=== PATIENT | female | born 1990 | race Caucasian/White ===

== ENCOUNTER → 2017-07-29 20:37 | Observation (INO) ==
[2017-07-29 19:41] LABS: Bilirubin,Urine Small (Negative); Blood,Urine Negative (Negative); Clarity,Urine Cloudy (Clear); Color,Urine Dark Yellow (Yellow); Glucose,Urine (UA) Normal (Normal); Ketones,Urine >=160 mg/dL (Negative); Leukocyte Esterase,Urine Negative (Negative); Nitrite,Urine Negative (Negative); Protein,Urine 30 mg/dL (Neg-Trace); Specific Gravity,Urine > 1.030 (1.010-1.025); Urobilinogen,Urine Normal (Normal)
[2017-07-29 19:44] LABS: Amphetamine Screen,Urine Negative ng/mL (Cutoff=1000); Barbiturate Screen,Urine Negative ng/mL (Cutoff=200); Benzodiazepines Screen,Urine Negative ng/mL (Cutoff=200); Cannabinoid Screen,Urine Negative ng/mL (Cutoff = 50); Cocaine Screen,Urine Negative ng/mL (Cutoff= 300); Opiate Screen,Urine Negative ng/mL (Cutoff=300); Phencyclidine Screen,Urine Negative ng/mL (Cutoff=25)
[2017-07-29 19:45] LABS: Hyaline Casts,Urine None Seen per lpf (None-Few); RBC,Urine 0-3 per hpf (0-3); Squamous Epithelial Cell,Urine Many per lpf (None-Few)
[2017-07-29 20:01] LABS: Bacteria,Urine Few per hpf (None-Few)
--- NOTE | 2017-07-29 20:04 | OB/GYN Progress Note ---
Date of Encounter: 07/29/17 Time of Encounter: 20:01 - Assessment and Plan (1) Nausea and vomiting during Current Visit: Yes Status: Acute - Will obtain labs - heart monitor - Encouraged oral hydration - encouraged patient to come back if N/V is intractable or fever, syncope, dizziness Subjective - Subjective Principal diagnosis: nausea and vomitting Interval history: Coni is a 26-year-old female 34 weeks presented to labor and deliver with 1 day of nausea and vomiting. Patient states that she vomited about 7 times this morning between 7:30 and 2:30 PM. Patient states that she currently is not nauseous but it comes in phases. Patient has not vomited since 2:30 today and has been able to drink water without N/V. Patient believes this may possibly be due to food poisoning as she ate a Lunchable that she kept in a car last night ( about 40 degrees last night). Patient uses Subutex prescribed by Dr. Alvarado at [facility]. Patient states she has not skipped any doses. Patient admits to 2 episodes of diarrhea this morning Patient denies dizziness, fever, chills, weakness, coughing, vision changes, syncope. Antepartum ROS: movement normal, no loss of fluid, no vaginal bleeding, no contractions Objective - Vital Signs Vital Signs: BP: 107/68, HR: 105, Temp: 98.2F Intake and Output 07/29/17 07/29/17 07/29/17 07:59 15:59 23:59 Other: Weight 57.3 kg Patient Weight 07/29/17 23:59 Weight 57.3 kg - Exam FHR: category 1 Auscultation: bilateral: normal Abdomen: Present: normal appearance, soft. Absent: tenderness Uterus: Present: normal Comments: mouth: moist mucous membranes - Labs Labs: Abnormal lab results Urine Clarity Cloudy (Clear) A 07/29/17 19:00 Ur Specific [place] > 1.030 (1.010-1.025) H 07/29/17 19:00 Urine Protein 30 mg/dL (Neg-Trace) H 07/29/17 19:00 Urine Ketones >=160 mg/dL (Negative) H 07/29/17 19:00 Urine Bilirubin Small (Negative) H 07/29/17 19:00 Urine Microscopic WBC 3-5 per hpf (0-3) H 07/29/17 19:00 Ur Squamous Epith Cells Many per lpf (None-Few) H 07/29/17 19:00
[2017-07-30 11:46] LABS: HIV-1&2 Antibody & p24 Ag Nonreactive (Nonreactive); Hepatitis B Surface Antigen Nonreactive (Nonreactive)
[2017-07-30 12:06] LABS: Rubella IgG Antibody POSITIVE (POSITIVE); Varicella Zoster IgG Antibody Positive
== END | disposition home or self-care (01) ==
LOC: 1NENULAB
PROVIDERS: ADMIT Obstetrics & Gynecology; ATTEND Obstetrics & Gynecology

== ENCOUNTER 2017-08-22 18:57 | Observation (INO) ==
[2017-08-22 20:01] LABS: Bilirubin,Urine Negative (Negative); Blood,Urine Negative (Negative); Clarity,Urine Clear (Clear); Color,Urine Yellow (Yellow); Glucose,Urine (UA) Normal (Normal); Ketones,Urine Negative (Negative); Leukocyte Esterase,Urine Negative (Negative); Nitrite,Urine Negative (Negative); Protein,Urine Negative (Neg-Trace); Specific Gravity,Urine 1.014 (1.010-1.025); Urobilinogen,Urine Normal (Normal)
[2017-08-22 20:06] LABS: Amphetamine Screen,Urine Negative ng/mL (Cutoff=1000); Barbiturate Screen,Urine Negative ng/mL (Cutoff=200); Benzodiazepines Screen,Urine Negative ng/mL (Cutoff=200); Cannabinoid Screen,Urine Negative ng/mL (Cutoff = 50); Cocaine Screen,Urine Negative ng/mL (Cutoff= 300); Opiate Screen,Urine Negative ng/mL (Cutoff=300); Phencyclidine Screen,Urine Negative ng/mL (Cutoff=25)
--- NOTE | 2017-08-22 20:09 | OB/GYN Progress Note ---
Date of Encounter: 08/22/17 Time of Encounter: 20:06 - Assessment and Plan (1) 37 weeks gestation of Current Visit: Yes Status: Acute (2) Decreased movement Current Visit: Yes Status: Acute Pt states movement has improved since arriving. tracing reactive, Seen by Dr Rogers, will discharge home with labor and when to return to triage precautions. Qualifiers: Fetus number: single or unspecified fetus Trimester: third trimester Qualified Code(s): O36.8130 - Decreased movements, third trimester, not applicable or unspecified (3) NST (non-stress test) reactive Current Visit: No Status: Acute Baseline 125 Subjective - Subjective Interval history: 37+4 here with decreased movement this evening. Pt states had intercourse early and has felt cramping since but nothing regular or painful. Denies vaginal bleeding or leaking of fluid. Antepartum ROS: contractions, no loss of fluid, no vaginal bleeding, no movement normal Objective - Vital Signs Vital Signs: Intake and Output 08/22/17 08/22/17 08/22/17 07:59 15:59 23:59 Other: Weight 60.328 kg Patient Weight 08/22/17 23:59 Weight 60.328 kg - Exam FHR: category 1 FHR comments: Baseline 125 Abdomen: Present: soft, gravid Uterus: Present: normal Cervical dilation: 2
== END 2017-08-22 20:16 | disposition home or self-care (01) ==
LOC: 1NENULAB
PROVIDERS: ADMIT Obstetrics & Gynecology; ATTEND Obstetrics & Gynecology

== ENCOUNTER 2017-09-04 10:00 | Inpatient (IN) ==
[2017-09-04] MEDS ORDERED: Ondansetron 4 MG/2 ML VIAL IVP PRN (10:40)
[2017-09-04] MEDS ORDERED: Famotidine 20 MG/2 ML VIAL IVP PRN (10:40)
[2017-09-04] MEDS ORDERED: Metoclopramide 10 MG/2 ML VIAL IVP PRN (10:40)
[2017-09-04] MEDS ORDERED: Naloxone 0.4 MG/ML INJ IVP PRN (10:40)
[2017-09-04] MEDS ORDERED: D5% in Lactated Ringers 1,000 ML IVC SCH (10:45)
[2017-09-04] MEDS ORDERED: miSOPROStol 25 MCG TABLET PO PRN (10:47)
[2017-09-04] MEDS ORDERED: Penicillin G Potassium 5,000,000 UNIT in 0.9 % Sodium Chloride Mini Bag 100 ML IVPB ONE (10:48)
--- NOTE | 2017-09-04 10:55 | OB/GYN History & Physical ---
Date of Encounter: 09/04/17 Time of Encounter: 10:43 Assessment and Plan (1) 39 weeks gestation of Current visit: Yes Status: Acute Admit for IOL. Plan for cytotec 25mcg PO per Dr. Rogers's order. PCN for GBS ppx. Epidural when requested. Anticipate . (2) complicated by subutex maintenance, antepartum Current visit: Yes Status: Acute Patient taking daily Subutex. Urine drug screen will be completed. Patient to bring Subutex from home. (3) GBS (group B Streptococcus carrier), +RV culture, currently Current visit: Yes Status: Chronic Patient GBS positive. We will provide with penicillin throughout labor. (4) HCV antibody positive Current visit: Yes Status: Chronic Chronic condition. (5) Noncompliance Current visit: Yes Status: Acute History of Present Illness HPI: Ms. Martinez is a 26 year old female presenting to labor and delivery for induction. Patient was seen in the office yesterday and was 5 cm dilated. Patient has a history of one spontaneous . Patient's has been complicated by opioid dependence. Patient is currently taking Subutex and vitamins. Patient has had positive hepatitis C antibody test. IBIS grade 3 on pap in June. Pt had a colposcopy without biopsy at that time. Plan to repeat pap and colposcopy . also complicated by tobacco abuse of approximately one half pack of cigarettes per day. Patient has also had intrauterine growth restriction. Patient denies any vaginal bleeding, cramping or loss of fluid. She reports good movement. Patient is GBS positive. Rubella immune. Hep C positive. Other serologies negative. Blood type A+. Patient was poor to follow-up as outpatient and has only had 5 visits. Past Med Surg Social Fam HX - Past Medical History Medical history: no medical history Psychiatric history: anxiety, depression - Past Surgical History Surgical History: no surgical history - Social History Smoking Status: Current every day smoker Packs per day: 0.5 Smokeless Tobacco Status: No Alcohol use: none Drug use: none - Family History Mother Adopted: No Family Member Ethnicity: Non- Living Status: Still Living Hx Family Cardiac Disorders: No Hx Family Respiratory Disorders: No Hx Family Cancer: No Hx Family GI Disorders: No Hx Family Genitourinary Disorders: No Hx Family Endocrine Disorder: No Hx Family Musculoskeletal Disorders: No Hx Family Neuromuscular Disorders: No Hx Family Neurologic Disorders: No Hx Family HEENT Disorders: No Hx Family Autoimmune Disorders: No Hx Family Reproductive Disorders: No Hx Family Psychosocial Disorders: No Hx Family Medical Disorders: No Obstetrical History - Pregnancies : 5 Para: 3 Term: 3 : 0 Ab's: 1 Livin Medications and Allergies Subutex 14 mg SL DAILY 06/25/16 [History] Vit/FA 1 each PO DAILY tablet 07/15/16 [Rx] 3 Allergy/AdvReac Type Severity Reaction Status Date / Time diphenhydramine Allergy Chest Pain Verified 07/29/17 19:00 [From Benadryl] Review of System OB All systems PM: reviewed and no additional remarkable complaints except as stated Exam - Constitutional Constitutional: well developed, well nourished, no acute distress, average body habitus - HEENT HEENT: Normocephaly, Mucus Membranes Moist - Neck Neck exam: normal inspection - Lungs Respiratory exam: CTAB - Cardiovascular Cardiovascular exam: RRR - Abdomen Abdomen: Present: bowel sounds normal, gravid, non tender - Extremities Extremities exam: normal inspection, warm - Cervix Dilation: 5 (in office yesterday) - Uterus Uterus exam: Present: enlarged (gravid), normal contour - Anus/Rectum Anus/Rectum: Present: normal perianal skin Results Result Diagrams: 09/04/17 10:40 All other labs normal. - VTE Reasons for not Prescribing Prophylaxis: Treatment not Indicated - Low risk for VTE
[2017-09-04 10:56] LABS: Basophils % 0.3 %; Eosinophils # 0.2 K/mcL (0.0-0.6); Eosinophils % 1.7 %; Hematocrit 33.8 % (35.3-44.9); Hemoglobin 10.7 g/dL (11.5-15.4); Immature Granulocytes % 0.8 % (0-4); Lymphocytes % 21.8 %; Mean Corpuscular HGB Conc 31.7 g/dL (31.6-35.5); Mean Corpuscular Volume 85.1 fL (83.0-100.0); Mean Platelet Volume 10.9 fL (9.4-12.4); Monocytes # 0.9 K/mcL (0.0-1.3); Monocytes % 10.2 %; Platelet Count 214 K/mcL (140-400); Red Blood Count 3.97 M/mcL (3.82-4.97); Red Cell Distribution Width 13.2 % (11.5-14.5); Segmented Neutrophils % 65.2 %
[2017-09-04 11:02] LABS: Amphetamine Screen,Urine Negative ng/mL (Cutoff=1000); Barbiturate Screen,Urine Negative ng/mL (Cutoff=200); Benzodiazepines Screen,Urine Negative ng/mL (Cutoff=200); Cannabinoid Screen,Urine Negative ng/mL (Cutoff = 50); Cocaine Screen,Urine Negative ng/mL (Cutoff= 300); Opiate Screen,Urine Negative ng/mL (Cutoff=300); Phencyclidine Screen,Urine Negative ng/mL (Cutoff=25)
--- NOTE | 2017-09-04 14:34 | Anesthesia Evaluation PreOp ---
Date of Encounter: 09/04/17 Time of Encounter: 14:24 - Past History Planned Operation: labor epidural Cardiac History: Denies any Significant Hx Pulmonary History: Smoker (1/2 ppd) MATHEMATICS EDUCATION PROFESSOR History: Denies Any Significant HX Other Medical History: Other (former opioid abuse, has been on subutex this whole , suboxone prior to that.) Anesthesia History: No Prior Anesthetic Complications (has had 3 prior epidurals without problems. Never had GA, denies FHAP.) : Yes Alcohol Use: none Drug use: none Medications and Allergies Subutex 14 mg SL DAILY 06/25/16 [History] Vit/FA 1 each PO DAILY tablet 07/15/16 [Rx] 3 Allergy/AdvReac Type Severity Reaction Status Date / Time diphenhydramine Allergy Chest Pain Verified 07/29/17 19:00 [From Benadryl] - Meds/Allergy Pre-op Review Medications Reviewed: Yes Allergies Reviewed: Yes Beta Blockers on Current Med List: No Anesthesia Results - Labs 09/04/17 10:40 Anesthesia Exam 121/69, 74, 16. FHTs 129. Height: 5'1" Weight: 60 kg NPO (# of Hours): >8 Pain Scale: 0 Pain Scale Used: Numeric (1 - 10) - HEENT Pupil (Motor): Pupils equal, EOMI Mallampati: II Teeth: Poor dentition - MATHEMATICS EDUCATION PROFESSOR LOC: Oriented MATHEMATICS EDUCATION PROFESSOR Motor: Normal RUE, Normal LUE, Normal RLE, Normal LLE, Normal Face MATHEMATICS EDUCATION PROFESSOR Sensory: Normal: RUE, LUE, RLE, LLE, Face - Cardiac Rhythm: Regular - Pulmonary Breath Sounds: bilateral Clear Respiratory Effort: Symmetrical Anesthesia Assess/Plan ASA Score: 2 Modified Isidoro Scale for Level of Consciousness: Cooperative, oriented, and tranquil Anesthetic Plan: Regional Autologous Blood: No Monitoring Plan: Standard Monitors
[2017-09-04] MEDS ORDERED: *HR* FentaNYL (PF) 100 MCG/2 ML VIAL EP ONE (14:36)
[2017-09-04] MEDS ORDERED: Bupivacaine-MPF 0.25% 10 ML VIAL EP ONE (14:36)
[2017-09-04] MEDS ORDERED: Epidural Premix (fent/bupiv) 110 ML EP SCH (14:45)
[2017-09-04] MEDS ORDERED: Penicillin G Potassium 2,500,000 UNIT in D5% in Water 100 ML IVPB SCH (15:20)
--- NOTE | 2017-09-04 15:57 | OB Labor Progress Note ---
Date of Encounter: 09/04/17 Time of Encounter: 15:55 Labor Progress Note - Subjective Subjective: The patient reports that she appreciates contractions but is not uncomfortable with them - Vital Signs Vital Signs: Afebrile, vital signs stable - Cervix Cervix: 5-6/90/0, vertex - Heart Tones Heart Tones: 120s, CAT 1 - [place] Kings[place]: Contractions irregular on external toco. Patient has had one dose of oral Cytotec - Interventions Interventions: 39 week IUP with multiple high risk factors for induction of labor. - Plan Plan: Amniotomy, meconium-stained amniotic fluid seen. IUPC placed. Continue close observation and augment as needed. Patient has been preoped for an epidural
[2017-09-04] MEDS ORDERED: Penicillin G Potassium 2,500,000 UNIT in 0.9 % Sodium Chloride 100 ML IVPB SCH (16:00)
[2017-09-04] MEDS ORDERED: Oxytocin 20 units/ LR 1000 mL 20 UNIT/1,000 ML BAG IVC SCH ×2 (16:30→20:25)
[2017-09-04] MEDS ORDERED: Epidural Premix (fent/bupiv) 110 ML EP ONE (17:18)
[2017-09-04] MEDS ORDERED: *HR* FentaNYL (PF) 100 MCG/2 ML VIAL ONE (17:18)
[2017-09-04] MEDS ORDERED: Bupivacaine-MPF 0.25% 10 ML VIAL ONE (17:18)
--- NOTE | 2017-09-04 18:32 | Anesthesia Procedures ---
Date of Encounter: 09/04/17 Time of Encounter: 17:20 Procedures: Anesthesia - Epidural/Spinal Patient ID/Chart reviewed: Yes Patient examined: Yes OB Eval: Gestational age: 39 OB Eval: : 5 OB Eval: Hx Para: 3 OB Eval: Dilated at (cm): 7 OB Eval: Contractions: Non-stressed pattern Consent Obtained: Yes Supplemental Oxygen: None/Room Air Site Prep: Aseptic Technique, Sterile prep and drape, Povidone-Iodine 1% Patient position: upright Local Anesthetic: Lidocaine 1% Amount of Local Anesthetic used: 5 Touhy Needle Gauge: 18 Touhy Needle Depth (cm): 6 Catheter Depth at Skin (cm): 18 Test Dose (1.5% Lido + Epi): Volume given (mls): 3 Test Dose Result: Negative Loading Dose: 0.25% Marcaine (mls): 8 Loading Dose: Fentanyl (mcg): 100 Loading Dose Administered: Thru Catheter Infusion Med: 0.125% Bupivacaine w/ 2 mcg/ml Fentanyl Infusion Rate (mls/hr): [address]: Tegaderm, Tape Interspace Used: L3-L4 Loss of Resistance (KIKI): Yes Blood: No CSF: No Paresthesia: No Vitals + FHT's: 3 Vital Signs Time 1720 1745 1750 1755 1800 BP 128/77 146/83 145/86 138/74 125/83 Pulse 95 120 111 96 101 FHTs 120 120 120 120 120
--- NOTE | 2017-09-04 19:34 | OB/GYN Procedure Note ---
Delivery - Delivery Date: 09/04/17 Provider: Altagracia Rogers Intrapartum events: meconium Delivery induction: misoprostol Delivery augmentation: rupture of membranes, pitocin Delivery monitor: external FHT, external uterine, internal uterine Anesthesia: epidural Estimated Blood Loss: 100 - (s) A Delivery Date: 09/04/17 Delivery Time: 18:59 Presentation: vertex Position: OA Route of delivery: Gender: Female Viability: Viable Pounds: 6 Ounces: 6 Weight Gram: 2.9 kg at 1 minute: 8 at 5 mins: 9 Shoulder Dystocia: not encountered Placenta: spontaneous Cord: nuchal cord, 3 umbilical vessels, nuchal reduced - Repair Episiotomy: none Laceration Description: Periurethral, Superficial - Complications Delivery complications: meconium Delivery comments: The patient was complete and pushing with epidural anesthesia with a spontaneous vaginal delivery in the KENDRA position of a vigorous female weighing 6 lbs. 6 and 910 Apgars oz. with Apgars of 8 at 1 minute and 9 at 5 minutes. Nuchal cord 1 was reduced. Infant was placed on the maternal abdomen. The cord was clamped and cut after pulsations ceased. Cord segment obtained. The placenta was delivered spontaneous and intact. Superficial periurethral lacerations were hemostatic and not repaired. There is a superficial perineal laceration was hemostatic and not repaired. Estimated blood loss 100 mL, complications none - Disposition Mom disposition: stable in LDR Mccarley disposition: stable in LDR
[2017-09-04] MEDS ORDERED: Acetaminophen 325 MG TABLET PO PRN (20:25)
[2017-09-05 04:47] LABS: Basophils % 0.2 %; Eosinophils # 0.1 K/mcL (0.0-0.6); Eosinophils % 1.1 %; Immature Granulocytes % 0.5 % (0-4); Lymphocytes # 2.3 K/mcL (0.6-4.6); Lymphocytes % 21.3 %; Mean Corpuscular HGB Conc 32.1 g/dL (31.6-35.5); Mean Corpuscular Volume 84.1 fL (83.0-100.0); Mean Platelet Volume 10.9 fL (9.4-12.4); Monocytes # 1.2 K/mcL (0.0-1.3); Monocytes % 11.5 %; Neutrophils # 6.9 K/mcL (1.6-8.9); Nucleated Red Blood Cells 0.3 /100 WBC (0); Platelet Count 157 K/mcL (140-400); Red Blood Count 3.33 M/mcL (3.82-4.97); Red Cell Distribution Width 13.3 % (11.5-14.5); Segmented Neutrophils % 65.4 %
[2017-09-05 08:31] VITALS: BP 134/81
[2017-09-05] MEDS ORDERED: Prenatal Vit/FA 1 EACH TABLET PO SCH (09:00)
--- NOTE | 2017-09-05 11:22 | Discharge Summary ---
Date of Encounter: 09/05/17 Time of Encounter: 11:19 - Discharge Diagnosis (1) Status post delivery at term Priority: Primary Status: Resolved Comments: Continue routine care discharge home today follow up with Dr. Rogers in 4-6 weeks Depo Provera prior to discharge - Discharge Medications Home Medications: Subutex 14 mg SL DAILY 06/25/16 [History] Vit/FA 1 each PO DAILY tablet 07/15/16 [Rx] Ferrous Sulfate 325 mg PO DAILY tablet 09/05/17 [Rx] Allergies/Adverse Reactions: 3 Allergy/AdvReac Type Severity Reaction Status Date / Time diphenhydramine Allergy Chest Pain Verified 07/29/17 19:00 [From Benadi] Data Procedures and tests throughout hospitalization: Laboratory Tests 09/04/17 09/04/17 09/05/17 10:40 10:40 04:27 WBC 9.2 10.6 RBC 3.97 3.33 L Hgb 10.7 L 9.0 L D Hct 33.8 L 28.0 L MCV 85.1 84.1 MCH 27.0 L 27.0 L MCHC 31.7 32.1 RDW 13.2 13.3 Plt Count 214 157 MPV 10.9 10.9 Immature Gran % 0.8 0.5 Seg Neutrophils % 65.2 65.4 Lymphocytes % 21.8 21.3 Monocytes % 10.2 11.5 Eosinophils % 1.7 1.1 Basophils % 0.3 0.2 Neutrophils # 6.0 6.9 Lymphocytes # 2.0 2.3 Monocytes # 0.9 1.2 Eosinophils # 0.2 0.1 Basophils # 0.0 0.0 Nucleated RBCs/100 WBC 0.3 H Urine Opiates Screen Negative Ur Barbiturates Screen Negative Ur Phencyclidine Scrn Negative Ur Amphetamines Screen Negative U Benzodiazepines Scrn Negative Urine Cocaine Screen Negative U Marijuana (THC) Screen Negative Labs on day of discharge: Labs from last 24 hours 09/05/17 04:27 WBC 10.6 RBC 3.33 L Hgb 9.0 L D Hct 28.0 L MCV 84.1 MCH 27.0 L MCHC 32.1 RDW 13.3 Plt Count 157 MPV 10.9 Immature Gran % 0.5 Seg Neutrophils % 65.4 Lymphocytes % 21.3 Monocytes % 11.5 Eosinophils % 1.1 Basophils % 0.2 Neutrophils # 6.9 Lymphocytes # 2.3 Monocytes # 1.2 Eosinophils # 0.1 Basophils # 0.0 Nucleated RBCs/100 WBC 0.3 H Date of admission: 09/04/17 10:02 Primary care physician: Remi Jean DO Consults: 09/04/17 20:25 Consult to Color Blender [CONS] Routine Comment: Vaginal delivery, consult needed Consult to Tipple Tender [CONS] Routine Reason for SW Consult: Narcotic use, limited PNC Discharging clinician: Evie Baptiste Anticipated date of discharge: 09/05/17 - Patient Status Disposition: Home, Self-Care Condition: Good Functional capacity at discharge: independent ambulation - Discharge Instructions Follow Up With: Remi Jean DO [Primary Care Provider] - Altagracia Rogers MD [Partnered Physician] - - Diet and Activity Activity: increase activity as tolerated Diet: regular diet Hospital Course Reason for admission: induction of labor Delivery: Episiotomy: none Other procedures: none complications: none Discharge diagnosis: IUP at term delivered [place] [employer] baby: female (bottle feeding) Time Attestation: Total time spent providing and/or coordinating discharge services: Time Spent: Less than 30 minutes Exam - Constitutional Vitals: Temp Pulse Resp BP Pulse Ox 98.1 F 82 16 134/81 100 09/05/17 07:40 09/05/17 07:40 09/05/17 07:40 09/05/17 07:40 09/05/17 07:40 General appearance IM: A&O X 3, pleasant - Respiratory Respiratory exam: Present: CTAB - Cardiovascular Cardiovascular exam IM: Present: +S1 - Uterine Tone: Firm Uterus Position: 1 Finger Below Umbilicus, Midline - Extremities Exam Extremities exam IM: Present: full ROM, normal capillary refill, normal inspection - Neurological Exam Neurological exam: alert, oriented X3, reflexes normal (lochia is light)
== END 2017-09-05 14:33 | disposition home or self-care (01) | DRG 560 ==
LOC: 1NENULAB 10:02 → 1NENUOBS 21:58
PROVIDERS: ADMIT Obstetrics & Gynecology; ATTEND Obstetrics & Gynecology